=== PATIENT | male | born 1980 | race Two or more races ===

== ENCOUNTER 2018-03-23 23:43 | Emergency (ER) | payer SELFPAY ==
[2018-03-23] MEDS ORDERED: NOREPINEPHRINE 8 MG/250ML KIT 250 ML IV ONE (23:56)
[2018-03-24] MEDS ORDERED: LEVETIRACETAM 500 MG/5ML INJ IV ONE (00:10)
[2018-03-24] MEDS ORDERED: DEXAMETHASONE SOD PHOS 4 MG/1ML SDV INJ ONE (00:10)
[2018-03-24] MEDS ORDERED: NOREPINEPHRINE 8 MG/250ML KIT 250 ML IV SCH (00:12)
[2018-03-24] MEDS ORDERED: PHYTONADIONE (VIT K)10 MG/ML 1ML VIAL SUBCUT ONE (00:15)
[2018-03-24] MEDS ORDERED: cefTRIAXone SOD 1,000 MG VL IM ONE (00:15)
[2018-03-24] MEDS ORDERED: LEVETIRACETAM INJ 1,000 MG in D5W 5% 100 ML IV ONE (00:15)
[2018-03-24] MEDS ORDERED: DEXAMETHASONE SOD PHOS 10MG/1ML VIAL INJ IV ONE (00:15)
[2018-03-24] MEDS ORDERED: phytonadione 1 ML ONE (00:16)
[2018-03-24] MEDS ORDERED: cefTRIAXone 1GM/10ml IVPUSH 10 ML IV ONE ×2 (00:18→00:30)
[2018-03-24 00:20] LABS: Basophils # (auto) 0 uL; Basophils % (auto) 0.2 % (0.0-2.0); Eosinophils # (auto) 0.1 uL; Eosinophils % (auto) 0.9 % (0.0-7.0); Hematocrit 44.1 % (41.0-53.0); Hemoglobin 14.2 g/dL (13.5-17.5); Lymphocytes # (auto) 5.3 uL; Lymphocytes % (auto) 50.2 % (10.0-50.0); Mean Corpuscular Hemoglobin 30.8 pg (28.0-32.0); Mean Corpuscular Hgb Conc. 32.2 g/dL (32.0-36.0); Mean Corpuscular Volume 95.4 fL (80.0-100.0); Monocytes % (auto) 9.7 % (0.0-12.0); Neutrophils # (auto) 4.1 uL; Platelet Count (auto) 245 10^3/uL (140-450); Red Blood Cells 4.63 10^6/uL (4.5-5.90); Red Cell Distribution Width 14.6 % (11.8-14.3); White Blood Cell 10.5 10^3/uL (4.4-10.8)
[2018-03-24 00:34] LABS: INR 1.03 (0.9-1.15); Partial Thromboplastin Time 26.3 sec (23.78-33.04)
[2018-03-24 00:40] LABS: Alanine Aminotransferase 359 U/L (16-61); Albumin 3.5 g/dL (3.4-5.0); Anion Gap 22 (5-15); Aspartate Aminotransferase 277 U/L (15-37); BUN/Creatinine Ratio 13.6; Blood Urea Nitrogen 19 mg/dL (7-18); Calcium 8.2 mg/dL (8.5-10.1); Carbon Dioxide 20 mmol/L (21-32); Chloride 101 mmol/L (98-107); GFR African American 74 mL/min; GFR Non-African American 61 mL/min; Glucose 308 mg/dL (74-106); Sodium 143 mmol/L (136-145)
[2018-03-24 00:45] LABS: Alkaline Phosphatase 99 U/L (45-117); Bilirubin, Total 0.4 mg/dL (0.2-1.0); Urine Bacteria NONE SEEN /hpf (None Seen); Urine Blood Negative /uL (Negative); Urine Mucus FEW (None Seen); Urine Specific Gravity 1.025 (1.001-1.035); Urine WBC 3 /hpf (0 - 3)
[2018-03-24] MEDS ORDERED: SODIUM CHLORIDE 0.9% 3,000 ML IV ONE (00:45)
[2018-03-24 00:49] VITALS: BP 124/80
[2018-03-24 01:17] LABS: Alcohol, Urine < 3.0 mg/dL (0-5); Amphetamine Screen, Urine POSITIVE (NEGATIVE); Barbiturate Scree,Urine NEGATIVE (NEGATIVE); Benzodiazephine Screen, Urine NEGATIVE (NEGATIVE); Cannabinoid Screen, Urine NEGATIVE (NEGATIVE); Cocaine Screen, Urine NEGATIVE (NEGATIVE); Opiate Scree,Urine NEGATIVE (NEGATIVE); Phencyclidine Screen, Urine NEGATIVE (NEGATIVE)
== END 2018-03-24 01:30 | disposition short-term general hospital (02) ==
LOC: EDBD 23:43 → ER 23:45
DX: I46.9 Cardiac arrest, cause unspecified (principal)
CPT/HCPCS: 31500; 36415; 70450; 70486; 71045; 72125; 74018; 80053; 80307; 81001; 84484; 85025; 85610; 85730; 86920; 92950; 96365; 96372; 96375; 99291; J0696; J1100; J1953; J3430; P9016; 94002; J7060